=== PATIENT | male | born 1950 | race African-American/Black ===

== ENCOUNTER 2021-04-12 09:00 | Emergency (ER) | payer MEDICARE, BC ==
[~2021-04-12] VITALS: Ht 182.9 cm; Wt 105.1 kg
[2021-04-12 11:19] LABS: BASOPHILS % (AUTO) 0 % (0-1); EOSINOPHILS % (AUTO) 1 % (1-7); LYMPHOCYTES % (AUTO) 11 % (22-44); MEAN CORPUSCULAR HEMOGLOBIN 28.7 pg (27.5-34.5); MEAN CORPUSCULAR HGB CONC 33.7 g/dL (33.2-36.2); MEAN PLATELET VOLUME 10.2 fL (7.4-10.4); MONOCYTES % (AUTO) 13 % (2-9); NEUTROPHILS % (AUTO) 74 % (42-75); PLATELET COUNT 218 x10^3/uL (130-400); RED BLOOD COUNT 5.32 x10^6/uL (4.38-5.82); RED CELL DISTRIBUTION WIDTH 15.2 % (9.4-14.8)
[2021-04-12 11:25] LABS: ANION GAP 4 mmol/L (5-15); CALCIUM 9.1 mg/dL (8.5-10.1); CHLORIDE 111 mmol/L (98-107)
[2021-04-12] MEDS ORDERED: OXYcodone/APAP 5/325MG TABLET PO ONE (11:30)
[2021-04-12] MEDS ORDERED: OXYcodone/APAP 5/325MG TABLET ONE (11:38)
--- NOTE | 2021-04-12 11:46 | NUR ---
MEDICATED PER ORDERS FOR PAIN,
--- NOTE | 2021-04-12 13:05 | NUR ---
KAMARA PLACED, DRAINED 1L. PATIENT FEELING RELIEF
--- NOTE | 2021-04-12 13:15 | NUR ---
SEEN BY MD ALBARRAN, PT TO BE DC W [facility] AND FOLLOW UP W UROLOGY. WAITING UA RESULTS
[2021-04-12 13:30] LABS: MICROSCOPIC INDICATED
[2021-04-12] MEDS ORDERED: CEFDINIR 300 MG CAPSULE ONE (13:48)
[2021-04-12 13:55] VITALS: BP 132/91
[2021-04-12] MEDS ORDERED: CEFDINIR 300 MG CAPSULE PO/NG ONE (14:00)
--- NOTE | 2021-04-12 14:00 | NUR ---
KAMARA SECURED, EDUCATION GIVEN. PT UNDERSTANDS [facility] CARE, S/S INFECTIONS OR COMPLICATIONS
--- NOTE | 2021-04-12 14:07 | NUR ---
Patient given discharge instructions and they have confirmed that they understand the instructions. Patient ambulatory with steady gait.
== END 2021-04-12 14:29 | disposition home or self-care (01) ==
LOC: ED 09:33
DX: M47.26 Other spondylosis with radiculopathy, lumbar region (principal); M54.41 Lumbago with sciatica, right side; N40.1 Benign prostatic hyperplasia with lower urinary tract symptoms; R33.8 Other retention of urine; N39.0 Urinary tract infection, site not specified; I12.9 Hypertensive chronic kidney disease with stage 1 through stage 4 chronic kidney disease, or unspecified chronic kidney disease; N18.9 Chronic kidney disease, unspecified
CPT/HCPCS: 36415; 72148; 76770; 80048; 81001; 85025; 87077; 87086; 87186; 99285

== ENCOUNTER 2021-05-04 16:07 | Inpatient (IN) | payer MEDICARE, BC ==
[~2021-05-04] VITALS: Ht 182.9 cm; Wt 108.9 kg
[2021-05-04] MEDS ORDERED: SODIUM CHLORIDE FLUSH 10ML SYR IVF ONE ×2 (16:30→18:30)
[2021-05-04] MEDS ORDERED: SODIUM CHLORIDE 0.9% 1,000ML IVBOLUS ONE ×2 (16:30→18:30)
--- NOTE | 2021-05-04 16:46 | NUR ---
PER FAMILY PT CONFUSED, PT AOX3 PLEASENT AND LAUGHING, CANNOT RECALL HAVING COVID VACCINE, NEEDS REMINDING FROM FAMILY. PT HAS HAD FEVERS FOR PAST COUPLE DAYS, HAS HAD AN INDWELLING CATHETER FOR A FEW WEEKS D/T URINARY RETENTION. PT TO BP, CONT PULSE OX, CARD MONITOR. HOLD OFF ON FLUIDS PER MD FOR POTENTIAL FLUID OVERLOAD
[2021-05-04 17:34] LABS: BASOPHILS % (AUTO) 0 % (0-1); EOSINOPHILS % (AUTO) 0 % (1-7); LYMPHOCYTES % (AUTO) 5 % (22-44); MEAN CORPUSCULAR HEMOGLOBIN 28.1 pg (27.5-34.5); MEAN CORPUSCULAR HGB CONC 32.8 g/dL (33.2-36.2); MEAN PLATELET VOLUME 9.8 fL (7.4-10.4); MONOCYTES % (AUTO) 9 % (2-9); NEUTROPHILS % (AUTO) 86 % (42-75); PLATELET COUNT 265 x10^3/uL (130-400); RED BLOOD COUNT 5.41 x10^6/uL (4.38-5.82)
[2021-05-04 17:40] LABS: ALBUMIN 3.1 g/dL (3.4-5.0); ANION GAP 8 mmol/L (5-15); CALCIUM 8.9 mg/dL (8.5-10.1); CHLORIDE 104 mmol/L (98-107)
[2021-05-04 17:43] LABS: ALANINE AMINOTRANSFERASE 23 U/L (12-78); ALKALINE PHOSPHATASE 87 U/L (45-117); BILIRUBIN,TOTAL 1.2 mg/dL (0.2-1.0); CREATININE 1.08 mg/dL (0.7-1.3); TOTAL PROTEIN 7.9 g/dL (6.4-8.2)
[2021-05-04] MEDS ORDERED: SODIUM CHLORIDE 0.9%, 500ML IVBOLUS ONE (18:00)
[2021-05-04] MEDS ORDERED: CEFTRIAXONE 1,000 MG in DEXTROSE 5% 50 ML IVPB ONE (18:00)
[2021-05-04 18:21] LABS: MICROSCOPIC INDICATED
[2021-05-04] MEDS ORDERED: ONDANSETRON 2MG/ML, 2ML IVPush PRN (18:30)
[2021-05-04] MEDS ORDERED: LABETALOL 5MG/ML, 20ML IVPush PRN (18:30)
[2021-05-04] MEDS ORDERED: OXYcodone IR 5MG TABLET PO PRN (18:30)
[2021-05-04] MEDS ORDERED: MELATONIN 5 MG TABLET PO PRN (18:30)
[2021-05-04] MEDS ORDERED: POLYETHYLENE GLYCOL 17 GM PACKET PO PRN (18:30)
[2021-05-04] MEDS ORDERED: ACETAMINOPHEN 325 MG TABLET PO PRN (18:30)
[2021-05-04] MEDS ORDERED: KETOROLAC 30 MG/1 ML IV PRN (18:30)
--- NOTE | 2021-05-04 18:51 | NUR ---
REPORT FROM NOEMY DONOHUE
--- NOTE | 2021-05-04 19:07 | NUR ---
Report to Stefanie
[2021-05-04] MEDS ORDERED: MULT-746 PO (19:36)
[2021-05-04] MEDS ORDERED: COD1CAPS6 PO (19:36)
[2021-05-04] MEDS ORDERED: ASPI-963 PO (19:36)
[2021-05-04] MEDS ORDERED: TAMS-11 PO (19:36)
[2021-05-04] MEDS ORDERED: ATOR20TA86 PO (19:36)
[2021-05-04] MEDS ORDERED: HYDR-3237 PO (19:36)
[2021-05-04] MEDS ORDERED: LISI1TAB39 PO (19:36)
[2021-05-04 20:15] VITALS: BP 166/90
[2021-05-04] MEDS: ENOXAPARIN 40 MG/0.4 ML SQ SCH (20:59)
[2021-05-04] MEDS: POTASSIUM CHLORIDE 20 MEQ in LACTATED RINGERS 1,000 ML IV SCH (21:29)
[2021-05-05 00:56] VITALS: BP 151/88
[2021-05-05 05:50] LABS: MEAN CORPUSCULAR HEMOGLOBIN 28.3 pg (27.5-34.5); MEAN CORPUSCULAR HGB CONC 33.1 g/dL (33.2-36.2); MEAN PLATELET VOLUME 10.4 fL (7.4-10.4); PLATELET COUNT 240 x10^3/uL (130-400); RED BLOOD COUNT 4.88 x10^6/uL (4.38-5.82); RED CELL DISTRIBUTION WIDTH 15.1 % (9.4-14.8)
[2021-05-05] MEDS: CEFTRIAXONE 2 GM in DEXTROSE 5% 50 ML IVPB SCH (05:50)
[2021-05-05 05:59] LABS: ANION GAP 10 mmol/L (5-15); CALCIUM 8.6 mg/dL (8.5-10.1); CHLORIDE 106 mmol/L (98-107)
[2021-05-05 06:30] LABS: <PLATELET ESTIMATE> ADEQUATE; <RBC MORPHOLOGY> NORMAL; BAND#(MANUAL) 0.22 x10^3/uL; BANDS%(MANUAL) 1 % (0-7); LYMPH#(MANUAL) 3.04 x10^3/uL (1-3.4); LYMPHS% (MANUAL) 14 % (22-44); MONOS#(MANUAL) 2.17 x10^3/uL (0.3-2.7); MONOS% (MANUAL) 10 % (2-9); SEG#(MANUAL) 16.28 x10^3/uL (1.8-6.8); SEGS% (MANUAL) 75 % (42-75)
[2021-05-05 06:31] LABS: <PLT MORPHOLOGY> NORMAL PLT MORPH
[2021-05-05 07:24] VITALS: BP 127/83
[2021-05-05] MEDS ORDERED: POTASSIUM CHLORIDE 20 MEQ TAB.ER.PRT PO ONE (09:00)
[2021-05-05] MEDS: POTASSIUM CHLORIDE 20 MEQ in LACTATED RINGERS 1,000 ML IV SCH (09:11)
[2021-05-05] MEDS ORDERED: HYDROcodone/APAP 5/325 TABLET PO PRN (11:30)
[2021-05-05] MEDS: TAMSULOSIN 0.4 MG CAP.ER.24H PO SCH ×2 (12:42→20:01)
[2021-05-05 13:26] VITALS: BP 128/76
[2021-05-05] MEDS: ENOXAPARIN 40 MG/0.4 ML SQ SCH (18:03)
[2021-05-05] MEDS: ATORVASTATIN 10 MG TABLET PO SCH (20:01)
[2021-05-05 20:43] VITALS: BP 152/83
[2021-05-06 00:12] VITALS: BP 159/91
[2021-05-06 05:35] LABS: BASOPHILS % (AUTO) 1 % (0-1); EOSINOPHILS % (AUTO) 3 % (1-7); LYMPHOCYTES % (AUTO) 16 % (22-44); MEAN CORPUSCULAR HEMOGLOBIN 28.1 pg (27.5-34.5); MEAN PLATELET VOLUME 10.3 fL (7.4-10.4); MONOCYTES % (AUTO) 11 % (2-9); NEUTROPHILS % (AUTO) 70 % (42-75); PLATELET COUNT 235 x10^3/uL (130-400); RED BLOOD COUNT 4.65 x10^6/uL (4.38-5.82); RED CELL DISTRIBUTION WIDTH 14.8 % (9.4-14.8)
[2021-05-06 05:40] LABS: ALBUMIN 2.4 g/dL (3.4-5.0); ANION GAP 6 mmol/L (5-15); CALCIUM 8.5 mg/dL (8.5-10.1); CHLORIDE 111 mmol/L (98-107)
[2021-05-06 05:44] LABS: ALANINE AMINOTRANSFERASE 24 U/L (12-78); ALKALINE PHOSPHATASE 81 U/L (45-117); BILIRUBIN,TOTAL 0.8 mg/dL (0.2-1.0); CREATININE 0.91 mg/dL (0.7-1.3); TOTAL PROTEIN 6.4 g/dL (6.4-8.2)
[2021-05-06] MEDS: CEFTRIAXONE 2 GM in DEXTROSE 5% 50 ML IVPB SCH (06:12)
[2021-05-06] MEDS ORDERED: POTASSIUM CHLORIDE 20 MEQ TAB.ER.PRT PO ONE (07:00)
[2021-05-06 08:10] VITALS: BP 154/93
[2021-05-06] MEDS: TAMSULOSIN 0.4 MG CAP.ER.24H PO SCH ×2 (08:16→20:38)
[2021-05-06] MEDS: LISINOPRIL 20 MG TABLET PO SCH (08:16)
[2021-05-06] MEDS: HYDROCHLOROTHIAZIDE 12.5 MG CAPSULE PO SCH (08:16)
[2021-05-06 13:17] VITALS: BP 148/90
[2021-05-06] MEDS: ENOXAPARIN 40 MG/0.4 ML SQ SCH (17:51)
[2021-05-06 20:34] VITALS: BP 169/96
[2021-05-06] MEDS: ATORVASTATIN 10 MG TABLET PO SCH (20:37)
[2021-05-06 21:35] VITALS: BP 132/90
[2021-05-07 00:01] VITALS: BP 150/88
[2021-05-07] MEDS: CEFTRIAXONE 2 GM in DEXTROSE 5% 50 ML IVPB SCH (05:34)
[2021-05-07 06:45] LABS: BASOPHILS % (AUTO) 1 % (0-1); EOSINOPHILS % (AUTO) 7 % (1-7); LYMPHOCYTES % (AUTO) 29 % (22-44); MEAN CORPUSCULAR HEMOGLOBIN 28.2 pg (27.5-34.5); MONOCYTES % (AUTO) 19 % (2-9); NEUTROPHILS % (AUTO) 45 % (42-75); PLATELET COUNT 227 x10^3/uL (130-400); RED BLOOD COUNT 4.61 x10^6/uL (4.38-5.82); RED CELL DISTRIBUTION WIDTH 15.1 % (9.4-14.8)
[2021-05-07 06:55] LABS: ALBUMIN 2.3 g/dL (3.4-5.0); ANION GAP 7 mmol/L (5-15); CALCIUM 8.4 mg/dL (8.5-10.1); CHLORIDE 111 mmol/L (98-107)
[2021-05-07 07:00] LABS: ALANINE AMINOTRANSFERASE 42 U/L (12-78); ALKALINE PHOSPHATASE 75 U/L (45-117); BILIRUBIN,TOTAL 0.4 mg/dL (0.2-1.0); CREATININE 0.79 mg/dL (0.7-1.3); TOTAL PROTEIN 6.3 g/dL (6.4-8.2)
[2021-05-07 07:56] VITALS: BP 151/90
[2021-05-07] MEDS ORDERED: CEPH750C9 PO (07:56)
[2021-05-07] MEDS: TAMSULOSIN 0.4 MG CAP.ER.24H PO SCH (08:28)
[2021-05-07] MEDS: HYDROCHLOROTHIAZIDE 12.5 MG CAPSULE PO SCH (08:28)
[2021-05-07] MEDS: LISINOPRIL 20 MG TABLET PO SCH (08:29)
== END 2021-05-07 11:07 | disposition home or self-care (01) | DRG 698 ==
LOC: ED 16:37 → EDIP 19:01 → 3N 19:17
PROVIDERS: ADMIT Internal Medicine; ATTEND Hospitalist
PROC: 0T9B30Z Drainage of Bladder with Drainage Device, Percutaneous Approach (ICD-10-PCS; principal; 2021-05-04)
DX: T83.518A Infection and inflammatory reaction due to other urinary catheter, initial encounter (principal); A41.9 Sepsis, unspecified organism; N39.0 Urinary tract infection, site not specified; N13.9 Obstructive and reflux uropathy, unspecified; M48.061 Spinal stenosis, lumbar region without neurogenic claudication; B96.20 Unspecified Escherichia coli [E. coli] as the cause of diseases classified elsewhere; B96.89 Other specified bacterial agents as the cause of diseases classified elsewhere; E66.9 Obesity, unspecified; E78.5 Hyperlipidemia, unspecified; E87.6 Hypokalemia; F17.210 Nicotine dependence, cigarettes, uncomplicated; F19.10 Other psychoactive substance abuse, uncomplicated; I10 Essential (primary) hypertension; M54.16 Radiculopathy, lumbar region; N40.0 Benign prostatic hyperplasia without lower urinary tract symptoms; Z68.31 Body mass index [BMI] 31.0-31.9, adult; Z96.659 Presence of unspecified artificial knee joint; Y84.6 Urinary catheterization as the cause of abnormal reaction of the patient, or of later complication, without mention of misadventure at the time of the procedure
CPT/HCPCS: 36415; 71045; 80048; 80053; 81001; 82306; 82570; 83605; 83735; 83970; 84100; 84145; 84156; 84550; 85025; 87040; 87077; 87086; 87186; 93005; 96361; 96365; G0378; J0696; J1650; J3480; J7030; J7040; J7120